=== PATIENT | male | born 1935 | race Caucasian/White ===

== ENCOUNTER 2017-10-09 10:31 | Day surgery (SDC) | payer MEDICARE, BC ==
[2017-10-05 15:17] LABS: BASOPHILS % (AUTO) 0.3 % (0-1); EOSINOPHILS # (AUTO) 0.1 X10'3 (0-0.9); EOSINOPHILS % (AUTO) 1.3 % (0-6); HEMATOCRIT 45.5 % (42.0-52.0); HEMOGLOBIN 15.2 g/dl (14.0-17.9); LYMPHOCYTES # (AUTO) 1.7 X10'3 (1.1-4.8); LYMPHOCYTES % (AUTO) 22.9 % (21-51); MEAN CORPUSCULAR HEMOGLOBIN 30.3 PG (27.0-31.0); MEAN CORPUSCULAR HGB CONC 33.4 % (33.0-36.5); MEAN CORPUSCULAR VOLUME 90.5 FL (78-98); MEAN PLATELET VOLUME 7.4 FL (7.4-10.4); MONOCYTES # (AUTO) 0.4 X10'3 (0-0.9); MONOCYTES % (AUTO) 5.5 % (2-12); NEUTROPHILS # (AUTO) 5.2 X10'3 (1.8-7.7); PLATELET COUNT 210 X10'3 (140-440); RED BLOOD COUNT 5.03 X10'6 (4.70-6.10); RED CELL DISTRIBUTION WIDTH 14.4 % (11.5-14.5); WHITE BLOOD COUNT 7.4 X10'3 (4.5-11.0)
[2017-10-05 15:30] LABS: INR 1.1 INR; PARTIAL THROMBOPLASTIN TIME 28 SECONDS (22-32)
[2017-10-05 15:31] LABS: ALBUMIN 3.5 G/DL (3.4-5.0); ANION GAP 6 (8-16); BLOOD UREA NITROGEN 18 MG/DL (7-18); BUN/CREATININE RATIO 12.2 (5.4-32.0); CALCIUM 9.2 MG/DL (8.5-10.1); CHLORIDE 106 MMOL/L (99-107); CREATININE 1.48 MG/DL (0.60-1.10); GLUCOSE 98 MG/DL (70-104); POTASSIUM 4.4 MMOL/L (3.5-5.1); SODIUM 142 MMOL/L (135-145); eGFR 46 ML/MIN
[~2017-10-09] VITALS: Ht 182.9 cm; Wt 97.2 kg
[2017-10-09] VITALS (11 sets, daily range): BP systolic 93–146; BP diastolic 59–104
[~2017-10-09 10:31] MED LIST: AMIO200T57 PO; APIX5TAB3 PO; ATOR10TA70 PO; GLUC100017 PO
[2017-10-09] MEDS ORDERED: normal saline 1000ml 1,000 ML IV SCH (10:55)
[2017-10-09] MEDS ORDERED: fentaNYL/PF 50MCG/1 ML 2ML syringe IV ONE (10:55)
[2017-10-09] MEDS ORDERED: MIDAZolam 5mg/ml 2ml vial IV ONE (10:55)
[2017-10-09] MEDS ORDERED: ATOR10TA87 PO (12:00)
== END 2017-10-09 14:00 | disposition home or self-care (01) ==
LOC: SSTAY O 10:31
PROVIDERS: ATTEND Internal Medicine Interventional Cardiology
DX: I48.0 Paroxysmal atrial fibrillation (principal); I25.10 Atherosclerotic heart disease of native coronary artery without angina pectoris; I42.8 Other cardiomyopathies; E78.5 Hyperlipidemia, unspecified; I10 Essential (primary) hypertension; Z79.01 Long term (current) use of anticoagulants; Z86.73 Personal history of transient ischemic attack (TIA), and cerebral infarction without residual deficits; Z87.11 Personal history of peptic ulcer disease; Z85.46 Personal history of malignant neoplasm of prostate; Z85.828 Personal history of other malignant neoplasm of skin; Z72.89 Other problems related to lifestyle; Z86.74 Personal history of sudden cardiac arrest; Z86.718 Personal history of other venous thrombosis and embolism; Z91.041 Radiographic dye allergy status; Z88.0 Allergy status to penicillin; Z79.899 Other long term (current) drug therapy; Z98.890 Other specified postprocedural states
CPT/HCPCS: 36415; 80048; 85025; 85610; 85730; 92960; 93005; J2250; J3010; J7030; A4620